=== PATIENT | female | born 1985 | race Caucasian/White ===

== ENCOUNTER 2018-07-21 09:13 | Emergency (ER) | payer OTHER ==
[2018-07-21] MEDS ORDERED: ACETAMINOPHEN 325 MG TABLET PO ONE (09:43)
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
[2018-07-21 11:42] VITALS: BP 132/72
== END 2018-07-21 11:25 | disposition home or self-care (01) ==
LOC: ER 09:13
DX: S16.1XXA Strain of muscle, fascia and tendon at neck level, initial encounter (principal); M54.2 Cervicalgia; M54.5 Low back pain; R51 Headache; V49.40XA Driver injured in collision with unspecified motor vehicles in traffic accident, initial encounter; Z88.8 Allergy status to other drugs, medicaments and biological substances; Z88.6 Allergy status to analgesic agent; Z88.2 Allergy status to sulfonamides
CPT/HCPCS: 72110; 72125; 81025; 99284